=== PATIENT | male | born 1955 | race Caucasian/White ===

== ENCOUNTER 2017-11-19 17:53 | Emergency (ER) | payer BC ==
[~2017-11-19] VITALS: Ht 185.4 cm; Wt 90.0 kg
[2017-11-19 17:57] VITALS: BP 143/78; PULSE 76; RESP 16; TEMP 98.4; O2SAT 95
--- NOTE | 2017-11-19 18:34 | PD ---
HPI Chief Complaint: Fall Time Seen by Provider: 18:05 Travel History International Travel<30 days: No Contact w/Intl Traveler<30days: No Traveled to known affect area: No History of Present Illness HPI The patient is a 61-year-old male who presents to the emergency department for left knee pain. The patient states he slipped and fell on the pool [employer], landing on a flexed left knee. The patient complains of swelling over the anterior aspect left knee. He does note previous surgery to the affected knee. The patient states there is mild swelling of the affected area. He denies any radiation of the pain to the ankle or up into the hip. Symptoms are moderate. The patient denies any other injuries with the fall. PFSH Past Medical History Narrative Medical Hypertension, GERD, prostate cancer Hx Anticoagulant Therapy: Yes (81MG ASA) Past Surgical History Narrative Surgical Left knee surgery Social History Tobacco Use: No Allergies-Medications (Allergen,Severity, Reaction): Coded Allergies: No Known Allergies (Unverified , 11/19/17) Reported Meds & Prescriptions Reported Meds & Active Scripts Active Hydrocodone-Acetaminophen 5-325 mg Tab 1 Tab PO Q6H PRN Reported Aspirin 81 Mg Chew 81 Mg CHEW DAILY Esomeprazole DR 40 Mg Capdr 40 Mg PO DAILY Lisinopril 10 Mg Tab 10 Mg PO DAILY Review of Systems Except as stated in HPI: all other systems reviewed are Neg HENT: No: Headaches, Neck Pain Cardiovascular: No: Chest Pain or Discomfort Respiratory: No: Shortness of Breath Gastrointestinal: No: Nausea, Vomiting, Abdominal Pain Musculoskeletal: Positive: Edema, Pain, No: Limited ROM Neurologic: No: Paresthesia, Sensory Disturbance Physical Exam Narrative GENERAL: Awake, alert, very pleasant 61-year-old male who appears his stated age and is in no SKIN: Focused skin assessment warm/dry. HEAD: Atraumatic. Normocephalic. le. MUSCULOSKELETAL: The patient has swelling to the anterior aspect of the left knee. There is a well-healed scar the medial aspect of the left knee. Patella appears midline, minimal tenderness. Positive dorsalis pedal pulse. He is able to passively flex the left knee by placing his arms under the left leg and pulling upwards. NEUROLOGICAL: Awake and alert. No obvious cranial nerve deficits. Motor grossly within normal limits. Normal speech. PSYCHIATRIC: Appropriate mood and affect; insight and judgment normal. Data Data Last Documented VS Vital Signs Date Time Temp Pulse Resp B/P (MAP) Pulse Ox O2 Delivery O2 Flow Rate FiO2 11/19/17 21:17 11/19/17 19:17 70 16 99 Room Air 11/19/17 17:57 98.4 Orders Orders Knee, Comp Inc Add Vws(4+Vws) (11/19/17 ) Ct Knee W/O Contrast (11/19/17 ) Splint Or Brace Apply/Monitor (11/19/17 19:45) [employer] Request For Service (11/19/17 19:47) Radiology Film Requests (11/19/17 ) Immobilizer Knee 20 Inch (11/19/17 ) MDM Medical Decision Making Medical Screen Exam Complete: Yes Emergency Medical Condition: Yes Medical Record Reviewed: Yes Differential Diagnosis Differential diagnosis includes patella fracture, tibial plateau fracture, patella dislocation, knee effusion, contusion, hematoma. Narrative Course Ice was applied to left knee. An x-ray was obtained with the sunrise view. The patient declined pain medication. X-ray patella fracture, postoperative changes with degenerative changes, and questionable tibial plateau fracture. Therefore, noncontrast CT of the knee was obtained. The patient was signed out to the oncoming physician at [address] pending. Diagnosis Primary Impression: Left patella fracture Qualified Codes: S82.002A - Unspecified fracture of left patella, initial encounter for closed fracture Patient Instructions: General Instructions Med/Other Pt SpecificInfo: Prescription(s) given Scripts Hydrocodone-Acetaminophen (Hydrocodone-Acetaminophen) 5-325 mg Tab 1 TAB PO Q6H Y for PAIN, #12 TAB 0 Refills Prov: Taylor Raymond MD 11/19/17 Disposition: 01 DISCHARGE HOME Condition: Stable Brandon Gorman MD Nov 19, 2017 18:34
[2017-11-19] MEDS ORDERED: LISI10TA3 PO (18:45)
--- NOTE | 2017-11-19 18:48 | RADRPT ---
EXAM DATE: 11/19/2017 6:35 PM EDT AGE/SEX: 61 years / Male INDICATIONS: Pain and swelling from fall on tile floor anteriorly. CLINICAL DATA: This is the patient's initial encounter. Patient reports that signs and symptoms have been present for 1 day and indicates a pain score of 1/10. MEDICAL/SURGICAL HISTORY: . Ligament damage, left knee. . Ligament repair, left knee. COMPARISON: No prior exams available for comparison. FINDINGS: Bone density is decreased. There is a mildly comminuted fracture of the patella with central butterfl y fragment and separation between the superior and inferior fragments on the lateral view measuring 1 .4 cm. There is mild swelling of the suprapatellar soft tissues and of the prevertebral soft tissues. There is advanced degenerative changes in the medial lateral compartment of the knee with almost comp lete loss of joint space, sclerosis of the tibial and femoral articular surfaces, flattening of the a rticular surfaces, and prominent osteophytes. No definite fracture in the tibial plateau. Evidence of prior surgery proximal tibia with a horizontal orthopedic screw in place. CONCLUSION: Comminuted fracture of the patella with displacement Electronically signed by: Huseyin Dubose MD 11/19/2017 6:47 PM EDT
[2017-11-19] MEDS ORDERED: ESOM1CAP16 PO (18:52)
[2017-11-19] MEDS ORDERED: ASPI-516 CHEW (18:52)
--- NOTE | 2017-11-19 19:11 | PD ---
Data Data Last Documented VS Vital Signs Date Time Temp Pulse Resp B/P (MAP) Pulse Ox O2 Delivery O2 Flow Rate FiO2 11/19/17 19:17 70 16 138/74 (95) 99 Room Air 11/19/17 17:57 98.4 Orders Orders Knee, Comp Inc Add Vws(4+Vws) (11/19/17 ) Ct Knee W/O Contrast (11/19/17 ) Splint Or Brace Apply/Monitor (11/19/17 19:45) [employer] Request For Service (11/19/17 19:47) Radiology Film Requests (11/19/17 ) [facility] Medical Record Reviewed: Yes Supervised Visit with FEDERICO: No Narrative Course During the course of the patient's emergency department visit, the patient's history, examination, and differential diagnosis were reviewed with the patient. The patient was placed on a supervisor labor gang with oximetry and frequent blood pressure monitoring. The patient had IV access obtained and blood work sent for analysis. The patient's case was checked out to me by Dr. Gorman. Please see his complete history and physical. The patient's case was checked out to me at the conclusion of his shift. The patient was noted to have a fall with a patella fracture on x-ray, however there was also concern for possible tibial plateau fracture. CT scan of the knee was ordered. This is pending at the conclusion of Dr. Gorman's shift. Therefore, the CT scan will be reviewed by me pending disposition of the patient. The patient on my evaluation reports that he slipped and fell when he slipped on wet tile prior to arrival. The patient was offered pain medication, however the patient reports having no discomfort at this time. The patient reports that he is visiting from [place]. Radiology studies were reviewed and remarkable for Last Impressions Lower Extremity CT 11/19/17 0000 Signed Impressions: CONCLUSION: 1. Comminuted patellar fracture as above with joint effusion and prepatellar s oft tissue swelling. 2. Advanced osteoarthritis of the knee with medial subluxation, marked joint s pace narrowing, sclerosis and large osteophytes. Knee X-Ray 11/19/17 0000 Signed Impressions: CONCLUSION: Comminuted fracture of the patella with displacement The patient was given a copy of the CT scan findings. As the patient is visiting from [place] and prefers to follow-up with an orthopedic doctor in [place], the patient will be given a CD scan of his images. I recommended that he call his family practice doctor in the morning to see if he needs a referral to an orthopedic physician back in [place]. I recommended that he make an appointment tomorrow by phone in preparation for going back home. I explained that there is a chance that he would require surgery for treatment of his patella fracture due to the displacement. I recommended that he continue to ice and elevate his knee. He was instructed not to weight-bear and use crutches. The patient was given crutches. The patient will be discharged home with a prescription for hydrocodone. Prior to the patient's prescription being written, the prescription drug monitoring database was reviewed at approximately 8:40 PM. No prior narcotic prescriptions in the [facility] have been written. The patient is resting comfortably and feels better, is alert and in no distress. The patient's results and examination findings were discussed with the patient. The repeat examination is unremarkable and benign. The history, exam, diagnostic testing, and current condition do not suggest any significant pathology to warrant further testing, continued ED treatment, admission, or surgical evaluation at this point. The vital signs have been stable. The patient does not have uncontrollable pain, intractable vomiting, or other significant symptoms. The patient's condition is stable and appropriate for discharge. The patient will pursue further outpatient evaluation with a primary care physician or other designated or consulting physician as indicated in the discharge instructions. The patient is instructed to report back to the emergency department immediately for reexamination in the mean time if he/ she develops any new or worsening signs or symptoms. The patient expressed understanding and was agreeable with this plan. Diagnosis Primary Impression: Left patella fracture Qualified Codes: S82.002A - Unspecified fracture of left patella, initial encounter for closed fracture Referrals: Orthopedist call for appointment Patient Instructions: General Instructions, Patellar Fracture (ED) Med/Other Pt SpecificInfo: Prescription(s) given Scripts Hydrocodone-Acetaminophen (Hydrocodone-Acetaminophen) 5-325 mg Tab 1 TAB PO Q6H Y for PAIN, #12 TAB 0 Refills Prov: Taylor Raymond MD 11/19/17 Disposition: 01 DISCHARGE HOME Condition: Stable Taylor Raymond MD Nov 19, 2017 19:11
[2017-11-19 19:17] VITALS: BP 138/74; PULSE 70; RESP 16; O2SAT 99
--- NOTE | 2017-11-19 19:27 | RADRPT ---
EXAM DATE: 11/19/2017 7:04 PM EDT AGE/SEX: 61 years / Male INDICATIONS: Trauma, fall today. Left knee pain. CLINICAL DATA: This is the patient's initial encounter. Patient reports that signs and symptoms have been present for 1 day and indicates a pain score of 6/10. MEDICAL/SURGICAL HISTORY: Carcinoma, prostatic. Hypertension. . left knee surgery RADIATION DOSE: 14.64 CTDI (mGy) COMPARISON: No prior exams available for comparison. TECHNIQUE: Multiple contiguous axial images were acquired using a multirow detector CT scanner witho ut contrast. Multiplanar reconstruction was performed in the sagittal and coronal planes. Using aut omated exposure control and adjustment of the mA and/or kV according to patient size, radiation dose was kept as low as reasonably achievable to obtain optimal diagnostic quality images. FINDINGS: There is a comminuted fracture of the patella predominantly centrally with up to 1.9 cm distraction o f the fracture fragments anteriorly. There is a hemarthrosis within the knee joint and there is prepa tellar soft tissue swelling as well. There is advanced osteoarthritis of the knee joint with medial subluxation of the distal femur on the tibia. There is prior screw within the proximal tibial shaft. CONCLUSION: 1. Comminuted patellar fracture as above with joint effusion and prepatellar soft tissue swelling. 2. Advanced osteoarthritis of the knee with medial subluxation, marked joint space narrowing, sclero sis and large osteophytes. Electronically signed by: Peter Ramos MD 11/19/2017 7:26 PM EDT
[2017-11-19] MEDS ORDERED: HYDR-3516 PO (20:40)
== END 2017-11-19 21:18 | disposition home or self-care (01) ==
LOC: NEPC 17:53
DX: S82.002A Unspecified fracture of left patella, initial encounter for closed fracture (principal); W01.0XXA Fall on same level from slipping, tripping and stumbling without subsequent striking against object, initial encounter; I10 Essential (primary) hypertension; K21.9 Gastro-esophageal reflux disease without esophagitis; Z85.46 Personal history of malignant neoplasm of prostate; Z79.82 Long term (current) use of aspirin
CPT/HCPCS: 73564; 73700; 99283; L1830